=== PATIENT | male | born 1995 | race Caucasian/White ===

== ENCOUNTER 2018-06-14 20:30 | Emergency (ER) | payer OTHER ==
[~2018-06-14] VITALS: Ht 167.6 cm; Wt 97.7 kg
[2018-06-14] MEDS ORDERED: NAPR-837 PO (23:06)
[2018-06-14] MEDS ORDERED: ACETAMINOPHEN 325 MG TAB PO ONE (23:15)
[2018-06-14] MEDS ORDERED: NAPROXEN 250 MG TAB PO ONE (23:15)
[2018-06-14 23:21] VITALS: BP 120/79
== END 2018-06-14 23:25 | disposition home or self-care (01) ==
LOC: M ED 20:30
DX: S29.012A Strain of muscle and tendon of back wall of thorax, initial encounter (principal); X58.XXXA Exposure to other specified factors, initial encounter; Y92.89 Other specified places as the place of occurrence of the external cause; Y99.0 Civilian activity done for income or pay; M62.830 Muscle spasm of back